=== PATIENT | male | born 1965 | race Caucasian/White ===

== ENCOUNTER → 2019-08-04 08:50 | Outpatient (CLI) | payer BC ==
--- NOTE | 2019-08-04 10:50 | NUR ---
90 MINUTE DELAY-MANOMETRY CATHETER "FAILED" UNABLE TO DO PROCEDURE. WAIT ON TECHNICAL SUPPORT TO PHONE BACK TO TROUBLE SHOOT EQUIPMENT. PROCEDURE DEFERRED.
== END | disposition home or self-care (01) ==
LOC: D.OPS 08:50 → D.RAD 10:00
PROVIDERS: ATTEND Surgery
DX: K21.9 Gastro-esophageal reflux disease without esophagitis (principal)

== ENCOUNTER 2020-11-12 05:30 | Day surgery (SDC) | payer OTHER ==
[~2020-11-12] VITALS: Ht 188 cm; Wt 99.1 kg
--- NOTE | ~2020-11-12 | OP ---
PATIENT NAME: PRECIOUS GONZALES MEDICAL RECORD: [id number] :67 LOCATION:[facility] ADMISSION DATE: SURGEON: HAYDER IRWIN MD DATE OF OPERATION: 11/12/2020 PREOPERATIVE DIAGNOSIS: Lumbar spinal stenosis with foraminal stenosis, L4-L5, left. POSTOPERATIVE DIAGNOSIS: Lumbar spinal stenosis with foraminal stenosis, L4-L5, left. PROCEDURE: Lumbar laminotomy, medial facetectomy and foraminotomy L4-L5, left. SURGEON: Hayder Irwin MD DESCRIPTION AND TECHNIQUE: After induction of general endotracheal anesthesia, the patient was rolled prone on the Kulwinder frame. Lumbar spine was prepped and draped in the usual sterile fashion. Fluoroscopic x-ray and spinal needle localized the L4-L5 interspace on the left side. After infiltration of 1:100,000 epinephrine with 1% lidocaine, a stab incision were created with a #11 blade. A series of dilators were used to advance a METRx retractor over the L4-L5 interspace on the left side. Level was confirmed with fluoroscopic x-ray. A microscope and Midas Severo drill was used to perform a laminectomy, medial facetectomy, and foraminotomy at L4-L5 on the left. Hypertrophied ligamentum flavum was removed with Cloward rongeurs. Following this, the left L4 and L5 nerve roots were decompressed as well. Meticulous hemostasis was maintained throughout the wound. Wound was irrigated with copious amounts of Ancef irrigant solution. The retractor was removed. The fascia was closed with 2-0 Vicryl suture. The subdermal layer was closed with 3-0 Vicryl suture. The skin was closed with bennett. A sterile dressing was applied to the wound. The patient was awakened in good condition and taken to recovery. All counts were reported as correct. Estimated blood loss was minimal. TRANSINT:[id number] Voice Confirmation ID: [id number] DOCUMENT ID: [id number] HAYDER IRWIN MD CC: [id number] DICTATION DATE: 11/14/20918 MACHINE TRIMMER: 11/14/20 1100 [facility] 11/12/20 [place] [address]
[~2020-11-12 05:30] MED LIST: LIPITOR40 MG PO; NEXIUM20 MG PO; TRAZODONE HCL50 MG PO
[2020-11-12 06:25] VITALS: BP 130/79; Ht 188 cm; Wt 99.1 kg
[2020-11-12] MEDS ORDERED: HYDROCODON-ACE1 EA10 PO (09:46)
[2020-11-12] MEDS ORDERED: MEDROL DOSE PACK4 MG PO (09:46)
--- NOTE | 2020-11-12 11:57 | NUR ---
OPA IN AIRWAY ON ADMIT
--- NOTE | 2020-11-12 12:13 | NUR ---
NO NUMBNESS OR TINGLING OF LOWER EXTREMETIES EQUAL STRENGHTS NO PAIN REPORTED
--- NOTE | 2020-11-12 14:22 | NUR ---
1310 - PATIENT HAS ALMOST A [address] MEDICATED WITH NORCO 10/325 ONE PO.
--- NOTE | 2020-11-12 14:23 | NUR ---
1315 - PATIENT UP TO BATHROOM TO VOID WITHOUT DIFFICULTY. ALSO DRESSED FOR DISCHARGE.
--- NOTE | 2020-11-12 14:24 | NUR ---
1400 - PATIENT DISCHARGED VIA WHEELCHAIR TO PRIVATE CAR.
== END 2020-11-12 14:00 | disposition home or self-care (01) ==
LOC: D.OPS 05:30
PROVIDERS: ATTEND Neurological Surgery
DX: M48.061 Spinal stenosis, lumbar region without neurogenic claudication (principal); M54.16 Radiculopathy, lumbar region; M53.86 Other specified dorsopathies, lumbar region